=== PATIENT | female | born 1990 | race Caucasian/White ===

== ENCOUNTER 2023-08-27 08:37 | Emergency (ER) | payer BC, SELFPAY ==
[2023-08-27 08:44] VITALS: BP 117/65
[2023-08-27 09:11] LABS: Urine Albumin Negative (Neg - Trace); Urine Bilirubin Negative (Negative); Urine Character Clear (Clear); Urine Color Yellow; Urine Glucose Negative (Negative); Urine Ketone Negative (Negative); Urine Leukocyte Negative (Negative); Urine Nitrite Negative (Negative); Urine Occult Blood Negative (Negative); Urine Urobilinogen Negative (Neg - 1+)
[2023-08-27 09:16] LABS: HCG, Urine Qualitative Screen Negative
[2023-08-27 09:25] LABS: % Basophils 0.6 % (0-2); % Immature Granulocytes 0.2 % (0-0.5); % Lymphocytes 42.2 % (20.5-51.1); % Monocytes 5.2 % (1.7-9.3); % Neutrophils 47.8 % (42.2-75.2); Absolute Eosinophils 0.2 10^3/uL (0-0.7); Absolute Lymphocytes 2.1 10^3/uL (1.2-3.4); Absolute Monocytes 0.3 10^3/uL (0.1-0.6); Absolute Neutrophils 2.4 10^3/uL (1.4-6.5); Hematocrit 40.8 % (37.0-47.0); Hemoglobin 13.8 g/dL (12.0-16.0); Mean Corp Hgb Conc. 33.8 g/dL (33.0-37.0); Mean Corpuscular Hgb 30.7 pg (27.0-31.0); Mean Corpuscular Volume 90.7 fL (81.0-99.0); Mean Platelet Volume 10.3 fL (7.4-10.4); Nucleated Red Blood Cells % 0 %; Platelet Count 221 10^3/uL (130-400); Red Cell Dist. Width 12.6 % (11.5-14.5)
[2023-08-27 09:33] LABS: ALT (SGPT) 23 U/L (0-35); AST (SGOT) 28 U/L (14-36); Albumin 4.2 g/dl (3.5-5.0); Alkaline Phosphatase 46 U/L (38-126); Blood Urea Nitrogen 17 mg/dl (7-17); Calcium 9.2 mg/dl (8.4-10.2); Carbon Dioxide 26 mmol/L (22-30); Chloride 106 mmol/L (98-107); Glucose 90 mg/dl (70-99); Potassium 4.5 mmol/L (3.5-5.1); Sodium 136 mmol/L (135-145); Total Bilirubin 0.5 mg/dl (0.2-1.3); Total Protein 6.9 g/dl (6.3-8.2); eGFR > 60.00
--- NOTE | 2023-08-27 09:52 | ED.GENMED ---
History of Present Illness
General
Chief Complaint: Abdominal Pain
Source: patient
Exam Limitations: none
Time Seen by Provider: 08/27/23 09:07
Nursing documentation reviewed up to this point in time: agreed with
History of Present Illness
History of Present Illness:
33-year-old female presenting to the emergency department today with concerns of 1 week of right-sided pelvic. Started as a sudden burst of pain 1 week ago and has been intermittently severe but persistent since. Does radiate to her right low
back. Denies any nausea vomiting fevers. Did have some vaginal bleeding initially but not ongoing. Does have a history of ovarian cyst.
Past History
Past History
ED Past Medical History: Other (Pyelonephritis at age 17) and Other (Lyme disease)
ED Past Surgical History: Other (Rhinoplasty)
Patient has exhibited threatening behavior?: No
PSI?: No
Social History
Tobacco: Non-smoker
Alcohol: None
Drug: None
Personal: Other (Fianc�)
Living: with family
Employment: Employed (Advertising)
Family History
Family History: Other (noncontributory)
Review of Systems
Review of Systems
Allergies reviewed?: Yes
All Other Systems: ROS reviewed and negative except as documented in HPI and ROS
Phy Exam
Physical Exam
Physical Exam:
GENERAL: Alert , in no apparent distress
EYE: pupils equal and reactive
NECK: Supple, no significant adenopathy.
ENT: o/p clr, mmm.
CARDIAC: Regular rate and rhythm .
LUNGS: Clear breath sounds bilaterally, no acute respiratory distress, no wheezes/rales/rhonchi
ABDOMEN: Soft, without focal tenderness, no r/g, no cvat
Pelvic: Right adnexal pain no masses no bleeding, no cervical motion tenderness no left adnexal discomfort
NEUROLOGICAL: Alert and oriented, no focal neuro deficits
SKIN: Warm and dry, skin intact.
MUSCULOSKELETAL: No edema, well perfused.
PSYCH: Normal and appropriate interaction.
Course
Orders/Labs/Results
Orders:
Orders
08/27/23 08:55
Test Result ONCE
08/27/23 09:00
HCG, Urine Qualitative Screen Urgent
Date Specimen was Collected: 08/27/23
Time Specimen was Collected: 08:55
Urinalysis Reflex To Culture Urgent
Date Specimen was Collected: 08/27/23
Time Specimen was Collected: 08:55
08/27/23 09:09
CMP [Comprehensive Metabolic Panel] Urgent
Complete Blood Count/With Diff Urgent
08/27/23 09:31
US Pelvis W Transvag Combined Urgent
Reason For Exam: right adnexal pain
08/27/23 09:09
08/27/23 09:09
Vital Signs
Initial and Last Documented VS:
Initial Vital Signs
Temp Pulse Resp BP Pulse Ox
98.9 F 65 16 117/65 99
08/27/23 08:44 08/27/23 08:44 08/27/23 08:44 08/27/23 08:44 08/27/23 08:44
Last Documented Vital Signs
Temp Pulse Resp BP Pulse Ox
98.9 F 66 16 123/67 99
08/27/23 08:44 08/27/23 10:37 08/27/23 10:37 08/27/23 10:37 08/27/23 08:44
MDM/Problems Addressed
MDM/Problems Addressed:
33-year-old female presenting to the emergency department today with concerns of right-sided pelvic discomfort over the past week started as a sudden burst of pain had some bleeding for a few days has had intermittent severe pain but ongoing
persisting pain as well. Patient's right adnexa is tender to palpation ultrasound ordered for further assessment. Ultrasound with no emergent findings no signs of torsion vital signs normal here. Labs unremarkable urinalysis normal no signs of
emergent pathology reassessed with no significant pain to the lower abdomen does not seem to be consistent with abdominal pathology case was discussed with gynecology and recommending close outpatient follow-up. Patient will follow-up but otherwise
stable here. Given return precautions.
*Critical Care Note
Total Time (30-74mins, 75-104mins- exclusive of procedures): Not Applicable
ED Attending Note
-
Portions of this chart may have been created with voice recognition software.� Occasional wrong word or��sound alike� substitutions may have occurred due to the inherent limitations of voice recognition software.
Discharge Plan
Departure
Patient Disposition: Home (Routine Discharge)
Date of Disposition: 08/27/23
Time of Disposition: 11:32
Patient with high blood pressure during this ER visit?: No
Condition: Good
Covid-19: Not Applicable
Discharge Problem:
Pelvic pain
Instructions: Pelvic Pain (DC)
Prescriptions:
No Action
Vitamin Tablet
1 tab PO DAILY
Probiotic
1 tab PO DAILY
ibuprofen 600 MG tablet
600 mg PO Q4HPRN PRN (Reason: moderate pain/cramps) 0RF
Referrals:
Shaylee Garcia MD [Active] - Follow up in 5-7 days
Inderjit Jonas MD [Family Provider] -
Activity Restrictions/Additional Instructions:
You came to the emergency department today with concerns of pelvic discomfort. Here you had a reassuring assessment with normal ultrasound labs and urinalysis. Please follow closely with gynecology. Return to the emergency department any
worsening, new or concerning symptoms.
Interventions
Interventions:
*Risk Screen - Suicide Last Done: 08/27/23 09:21
*General Assessment Last Done: 08/27/23 09:21
*Neglect/Abuse Screening Last Done: 08/27/23 09:21
ED- Fall Risk Assessment Last Done: 08/27/23 09:24
*ED COVID-19 Vaccine History Last Done: 08/27/23 08:54
OC-Codbmt-Anibsetnxt Assessment Last Done: 08/27/23 09:21
Discharge Date and Time
Print Language: BULGARIAN
[2023-08-27 10:37] VITALS: BP 123/67
[2023-08-27 11:46] VITALS: BP 105/50
== END 2023-08-27 11:48 | disposition home or self-care (01) ==
LOC: EMR 08:37
PROVIDERS: EMERGENCY PHYSICIAN Emergency Medicine; FAMILY PHYSICIAN Family Medicine
DX: R10.2 Pelvic and perineal pain (principal); M54.50 Low back pain, unspecified; N83.209 Unspecified ovarian cyst, unspecified side; Z88.5 Allergy status to narcotic agent
CPT/HCPCS: 99284; 76830; 76856; 80053; 81003; 81025; 85025

== ENCOUNTER 2023-12-02 18:59 | Emergency (ER) | payer BC, SELFPAY ==
[2023-12-02] VITALS (14 sets, daily range): BP systolic 120–171; BP diastolic 68–96
[2023-12-02] MEDS: MORPHINE SULFATE 6 MG IV (19:27)
[2023-12-02] MEDS: ZOFRAN 4 MG IV (19:28)
[2023-12-02] MEDS: ATIVAN 1 MG IV (19:29)
--- NOTE | 2023-12-02 19:41 | ED.MUSCINJ ---
HPI-Injury
General
Chief Complaint: Musculo-Skeletal Complaint
Time Seen by Provider: 12/02/23 19:07
History of Present Illness-Injury
Initial Injury comments:
33-year-old female without significant past medical history presenting to the emergency department with concern of bilateral shoulder dislocation. Patient reports she was at the gym prior to arrival, doing an overhead press and felt both of her
arms dislocate. Reports history of dislocation to her right shoulder in the past, however was able to pop it back into place. Denies any additional acute injuries. Denies any additional acute medical complaints. Patient received fentanyl and
route by medics.
Past History
Past History
ED Past Medical History: Other (Pyelonephritis at age 17) and Other (Lyme disease)
ED Past Surgical History: Other (Rhinoplasty)
Patient has exhibited threatening behavior?: No
PSI?: No
Social History
Tobacco: Non-smoker
Alcohol: None
Drug: None
Personal: Other (Fianc�)
Living: with family
Employment: Employed (Advertising)
Family History
Family History: Other (noncontributory)
Phy Exam
Physical Exam
Physical Exam:
General: Well-appearing, no clinical signs of dehydration
HEENT: protecting airway
Neck: appears supple
CV: Normal heart rate
Resp: No accessory muscle use, no increased work of breathing
Abd: Soft and non-distended, no tenderness to palpation, normal bowel sounds
Extremities: Obvious deformity to bilateral shoulders with arms held in abduction, pulses and sensation intact. Limited range of motion secondary to pain
Neuro: alert, no focal neurologic deficit
: deferred
Rectal: deferred
Psych: Normal affect
Skin: Intact
Injury Course
Orders/Labs/Results
Orders:
Orders
12/02/23 19:04
Morphine Sulfate 8 mg .ROUTE .STK-MED ONE
12/02/23 19:10
CR Shoulder - Left 1 View Urgent
Reason For Exam: injury
CR Shoulder - Right 1 View Urgent
Reason For Exam: injury
12/02/23 19:16
Lorazepam [Ativan] 2 mg .ROUTE .STK-MED ONE
12/02/23 19:17
Propofol [Diprivan] 20 ml .ROUTE .STK-MED
12/02/23 19:18
Ondansetron Injectable [Zofran] 4 mg .ROUTE .STK-MED ONE
12/02/23 19:25
Morphine Sulfate 2 mg .ROUTE .STK-MED ONE
12/02/23 19:26
Morphine Sulfate 6 mg IV NOW STA
12/02/23 19:28
Ondansetron Injectable [Zofran] 4 mg IV NOW STA
12/02/23 19:29
Lorazepam [Ativan] 1 mg IV NOW STA
12/02/23 19:32
Shoulder, Left 2 View CR [CR Shoulder - Left Min 2 View*] Urgent
Comment:
Reason For Exam: post reduction
Shoulder, Right 2 Views [CR Shoulder - Right Min 2 View] Urgent
Comment:
Reason For Exam: post reduction
Procedures
Moderate Sedation
ASA Risk Score: Class I
Chart and allergies reviewed: Yes
Consent for anesthesia obtained: Yes
Time out completed (validating right patient & procedure): Yes
Moderate Sedation Start Time(when first medication is given): 19:34
History of difficult intubation: No
Airway free of obstruction: Yes
Patient has a gag reflex: Yes
Patient is able to open mouth: Yes
Patient has no dentures: Yes
Patient has no loose teeth: Yes
Medication administered by Provider during Moderate Sedation: IV Propofol (mg)
Total dose administered: 100
Time drug administered: 19:34
Moderate Sedation Procedure End Time: 19:45
Joint/Fracture Reduction
Bilateral Anterior Shoulder:
Indication for procedure:: shoulder dislocation, bilateral
Procedure completed by: Kristina Snyder and Jae Timmons
Consent form signed: Yes
Joint reduced: with anesthesia sedation
Injury was: closed
Post reduction exam: stable
Capillary Refill: normal
Normal distal neurovascular exam?: Yes
MDM/Problems Addressed
MDM/Problems Addressed:
33-year-old female without significant past medical history presenting for concern of bilateral shoulder dislocation after lifting weights. Vital signs on arrival are normal.
On exam, patient is well-appearing, no acute distress, however is uncomfortable secondary to pain with obvious deformities to bilateral upper extremities. No neurovascular compromise at this time. X-rays obtained and patient's arrival, confirm
dislocation, anterior. Morphine administered for pain. Procedural sedation and shoulder reduction consent obtained. Procedure was completed without issue. Please see procedure note. Repeat x-rays confirm relocation, normal neurovascular exam
status post reduction. Patient placed in bilateral shoulder immobilizers. Will continue to monitor until clinically stable off of sedation with disposition home with outpatient orthopedic follow-up, spouse to drive her home
*Critical Care Note
Total Time (30-74mins, 75-104mins- exclusive of procedures): Not Applicable
ED Attending Note
-
Portions of this chart may have been created with voice recognition software.� Occasional wrong word or��sound alike� substitutions may have occurred due to the inherent limitations of voice recognition software.
Discharge Plan
Departure
Prescriptions:
No Action
Vitamin Tablet
1 tab PO DAILY
Probiotic
1 tab PO DAILY
ibuprofen 600 MG tablet
600 mg PO Q4HPRN PRN (Reason: moderate pain/cramps) 0RF
Interventions
Interventions:
*Risk Screen - Suicide Last Done: 12/02/23 19:05
*General Assessment Last Done: 12/02/23 19:05
*Neglect/Abuse Screening Last Done: 12/02/23 19:05
Discharge Date and Time
Print Language: UKRAINIAN
[2023-12-02] MEDS: TORADOL 30 MG IV (20:03)
== END 2023-12-02 21:03 | disposition home or self-care (01) ==
LOC: EMR 18:59
PROVIDERS: EMERGENCY PHYSICIAN Student in an Organized Health Care Education/Training Program
DX: S43.005A Unspecified dislocation of left shoulder joint, initial encounter (principal); S43.004A Unspecified dislocation of right shoulder joint, initial encounter; X50.0XXA Overexertion from strenuous movement or load, initial encounter
CPT/HCPCS: 99285; 23650; 96374; 96375 ×2; 99152; 73020; 73030

== ENCOUNTER → 2024-06-04 05:17 | Emergency (ER) | payer OTHER, SELFPAY ==
[2024-06-04 05:19] VITALS: BP 104/74
[2024-06-04 05:37] VITALS: BP 108/72
[2024-06-04] MEDS: NSS 1000 IV (05:54)
[2024-06-04] MEDS: ZOFRAN 4 MG IV (05:55)
[2024-06-04 06:07] LABS: % Basophils 0.4 % (0-2); % Eosinophils 2.7 % (0-6); % Immature Granulocytes 0.3 % (0-0.5); % Lymphocytes 33.5 % (20.5-51.1); % Neutrophils 56.1 % (42.2-75.2); Absolute Eosinophils 0.2 10^3/uL (0-0.7); Absolute Lymphocytes 2.4 10^3/uL (1.2-3.4); Absolute Monocytes 0.5 10^3/uL (0.1-0.6); Absolute Neutrophils 3.9 10^3/uL (1.4-6.5); Hematocrit 40.8 % (37.0-47.0); Hemoglobin 14.1 g/dL (12.0-16.0); Mean Corp Hgb Conc. 34.6 g/dL (33.0-37.0); Mean Corpuscular Hgb 31.1 pg (27.0-31.0); Mean Corpuscular Volume 90.1 fL (81.0-99.0); Mean Platelet Volume 10.1 fL (7.4-10.4); Nucleated Red Blood Cells % 0 %; Platelet Count 226 10^3/uL (130-400); Red Blood Cell Count 4.53 10^6/uL (4.20-5.40); Red Cell Dist. Width 12.1 % (11.5-14.5)
--- NOTE | 2024-06-04 06:08 | ED.GENMED ---
History of Present Illness
General
Chief Complaint: Abdominal Symptoms
Time Seen by Provider: 06/04/24 05:57
History of Present Illness
History of Present Illness:
Patient is a 33-year-old female who presents to the emergency department with nausea vomiting and diarrhea. Symptoms started on Wednesday. She had some diarrhea at that time. Since then she has had nausea and vomiting. She endorses intermittent
abdominal pain across her lower abdomen. Denies any fevers or chills. Denies any bloody stools. Denies any urinary symptoms. Last menstrual period was 2 weeks ago. She endorses a chronic history of abdominal pain that comes and goes but is
never been diagnosed. She has not yet seen a GI doctor for this as every time she has made an appointment, symptoms have self resolved.
Past History
Past History
ED Past Medical History: Other (Pyelonephritis at age 17) and Other (Lyme disease)
ED Past Surgical History: Other (Rhinoplasty)
Patient has exhibited threatening behavior?: No
PSI?: No
Social History
Tobacco: Non-smoker
Alcohol: None
Drug: None
Personal: Other (Fianc�)
Living: with family
Employment: Employed (Advertising)
Family History
Family History: Other (noncontributory)
Phy Exam
Physical Exam
Physical Exam:
GENERAL APPEARANCE: NAD, well developed/ well nourished
EYES lids/conjunctiva normal
EARS/NOSE/THROAT Mucous membranes moist, uvula midline without oral pharyngeal erythema, exudate or swelling
HEAD/NECK normocephalic atraumatic, neck is supple.
RESPIRATORY respiratory effort normal, speaks in full sentences, no accessory muscle use. Lungs clear to auscultation without rhonchi, wheezes, rales
CARDIAC Regular rate and rhythm, no edema.
ABDOMINAL Soft, no distention. Mild tenderness across the lower abdomen. No guarding or rebound.
MUSCLES/EXTREMITIES No abnormal range of motion, no swelling.
SKIN Warm, pink and dry. No rashes
NEUROLOGICAL Speech is clear and appropriate. Normal level of consciousness. 5/5 strength in all extremities.
PSYCH Normal mood and affect. Judgement/competence is appropriate
Course
Orders/Labs/Results
Orders:
Orders
06/04/24 05:45
IV Insert/Care/Rem.- Treatment PRN
Urinalysis Reflex To Culture Urgent
Date Specimen was Collected: 06/04/24
Time Specimen was Collected: 05:46
Urine Microscopic Reflex Cult Urgent
06/04/24 05:47
Test Result ONCE
06/04/24 05:48
Complete Blood Count/With Diff Urgent
Comprehensive Metabolic Panel Urgent
HCG, Serum Qualitative Screen Urgent
Lipase Urgent
06/04/24 05:51
Ondansetron Injectable [Zofran] 4 mg .ROUTE .STK-MED ONE
Ondansetron Orally Disint [Zofran Odt (Orally Disintegrating)] 4 mg .ROUTE .STK-MED ONE
06/04/24 05:53
0.9% Sodium Chloride 1000 ml [Nss] 1,000 ml IV BOLUS
06/04/24 05:54
Ondansetron Injectable [Zofran] 4 mg IV NOW STA
06/04/24 06:10
Mag Hydrox/Al Hydrox/Simeth [Maalox] 30 ml Phenobarb/Hyoscy/Atropine/Scop [] 10 ml Viscous Lidocaine 2% [Xylocaine Viscous Cup] 10 ml PO NOW
Pantoprazole [Protonix IV] 40 mg IV NOW STA
06/04/24 06:23
Mag Hydrox/Al Hydrox/Simeth [Maalox] 30 ml .ROUTE .STK-MED ONE
Phenobarb/Hyoscy/Atropine/Scop [] 10 ml .ROUTE .STK-MED ONE
Viscous Lidocaine 2% [Xylocaine Viscous Cup] 15 ml .ROUTE .STK-MED ONE
Abnormal Lab Results
04/06/25 04/06/25
05:45 05:48
MCH 31.1 H pg
(27.0-31.0)
Lipase 354 H U/L
(23-300)
Ur Occult Blood Reflex 1+ A
(Negative)
Urine Bacteria (Reflex) Few A
(Negative)
06/04/24 05:48
06/04/24 05:48
Vital Signs
Initial and Last Documented VS:
Initial Vital Signs
Temp Pulse Resp BP Pulse Ox
97.8 F 88 20 104/74 100
06/04/24 05:19 06/04/24 05:19 06/04/24 05:19 06/04/24 05:19 06/04/24 05:19
Last Documented Vital Signs
Temp Pulse Resp BP Pulse Ox
97.8 F 69 17 108/72 100
06/04/24 05:19 06/04/24 07:15 06/04/24 07:15 06/04/24 05:37 06/04/24 07:15
*Critical Care Note
Total Time (30-74mins, 75-104mins- exclusive of procedures): Not Applicable
ED Attending Note
ED Attending Note
ED Attending Note:
Suspect underlying gastrointestinal disease possibly IBS versus some type of inflammatory bowel disease. No fevers or per bloody stools at this time. Doubt acute appendicitis or acute emergency given 1 week of symptoms without any significant
tenderness at this time. Will start on a PPI, rehydrate, treat symptomatically and reassess.
No leukocytosis. No evidence of significant dehydration. No epigastric pain or tenderness typical of pancreatitis. No active vomiting in ER. Lipase level elevated but not at level suggestive of pancreatitis. Possibly resolving pancreatitis? Will
recommend clear liquid diet, start PPI and refer to GI as outpatient
-
Portions of this chart may have been created with voice recognition software.� Occasional wrong word or��sound alike� substitutions may have occurred due to the inherent limitations of voice recognition software.
Discharge Plan
Departure
Patient Disposition: Home (Routine Discharge)
Date of Disposition: 06/04/24
Time of Disposition: 08:31
Patient with high blood pressure during this ER visit?: No
Discharge Problem:
Vomiting
Instructions: Clear Liquid Diet, Nausea and Vomiting, Adult (DC)
Prescriptions:
New
ondansetron 4 mg tablet,disintegrating
4 mg PO TIDPRN PRN (Reason: nausea/vomiting) Qty: 14 0RF
pantoprazole 40 mg tablet,delayed release (DR/EC)
40 mg PO DAILY Qty: 14 0RF
No Action
Vitamin Tablet
1 tab PO DAILY
Probiotic
1 tab PO DAILY
ibuprofen 600 MG tablet
600 mg PO Q4HPRN PRN (Reason: moderate pain/cramps) 0RF
ibuprofen 800 mg tablet
800 mg PO Q8H PRN (Reason: Pain) Qty: 20 0RF
oxycodone 5 mg capsule
5 mg PO BID PRN (Reason: Pain) 5 Days Qty: 10 0RF
Referrals:
NONE,* [Family Provider] -
Savi Alejo, [Active] -
Activity Restrictions/Additional Instructions:
Please call and schedule close follow-up appointment with the bridge contractor. Return to the emergency department with fevers chills, worsening symptoms especially if the pain becomes more severe
Interventions
Interventions:
*Risk Screen - Suicide Last Done: 06/04/24 05:19
*Neglect/Abuse Screening Last Done: 06/04/24 05:19
Discharge Date and Time
Print Language: BURKINAN
[2024-06-04 06:20] LABS: ALT (SGPT) 27 U/L (0-35); AST (SGOT) 26 U/L (14-36); Alkaline Phosphatase 51 U/L (38-126); Blood Urea Nitrogen 13 mg/dl (7-17); Calcium 9.4 mg/dl (8.4-10.2); Carbon Dioxide 25 mmol/L (22-30); Chloride 106 mmol/L (98-107); Glucose 91 mg/dl (70-99); Lipase 354 U/L (23-300); Potassium 4.7 mmol/L (3.5-5.1); Sodium 139 mmol/L (135-145); Total Bilirubin 0.5 mg/dl (0.2-1.3); Total Protein 6.6 g/dl (6.3-8.2); eGFR > 60.00
[2024-06-04 06:22] LABS: HCG, Serum Qualitative Screen Negative
[2024-06-04] MEDS: MAALOX 50 PO (06:25)
[2024-06-04] MEDS: PROTONIX IV 40 MG IV (06:25)
[2024-06-04 07:52] LABS: Urine Albumin Negative (Neg - Trace); Urine Bilirubin Negative (Negative); Urine Character Clear (Clear); Urine Color Yellow; Urine Glucose Negative (Negative); Urine Ketone Negative (Negative); Urine Leukocyte Negative (Negative); Urine Nitrite Negative (Negative); Urine Occult Blood 1+ (Negative); Urine Urobilinogen Negative (Neg - 1+)
[2024-06-04 08:28] LABS: Urine Bacteria Few (Negative); Urine White Cell 0-2 /HPF (0-5)
[2024-06-04 08:29] LABS: Urine Red Blood Cell None Seen /HPF (0-2)
== END | disposition home or self-care (01) ==
LOC: EMR 05:17
PROVIDERS: Student in an Organized Health Care Education/Training Program; EMERGENCY PHYSICIAN Emergency Medicine
DX: R11.2 Nausea with vomiting, unspecified (principal); R19.7 Diarrhea, unspecified; R10.30 Lower abdominal pain, unspecified; Z88.5 Allergy status to narcotic agent
CPT/HCPCS: 99284; 96374; 96375; 96361; 80053; 81003; 81015; 83690; 84703; 85025

== ENCOUNTER 2025-02-21 14:24 | Emergency (ER) | payer OTHER, SELFPAY ==
[2025-02-21 14:30] VITALS: BP 124/88
[2025-02-21 16:23] VITALS: BMI 29.6
[2025-02-21] MEDS: MOTRIN 600 MG PO (16:34)
--- NOTE | 2025-02-21 16:45 | ED.MUSCINJ ---
HPI-Injury
General
Chief Complaint: Musculo-Skeletal Complaint
Source: patient
Exam Limitations: none
Time Seen by Provider: 02/21/25 16:29
Nursing documentation reviewed up to this point in time: agreed with
History of Present Illness-Injury
Initial Injury comments:
Patient to emergency department for evaluation of right foot. Patient states that she dropped a weight onto her barefoot. She complains of pain to right dorsal midfoot. She has a superficial abrasion bruising and swelling to site. Incident
occurred just prior to arrival.
Past History
Past History
ED Past Medical History: Other (Pyelonephritis at age 17) and Other (Lyme disease)
ED Past Surgical History: Other (Rhinoplasty)
Patient has exhibited threatening behavior?: No
PSI?: No
Social History
Tobacco: Non-smoker
Alcohol: None
Drug: None
Personal: Other (Fianc�)
Living: with family
Employment: Employed (Advertising)
Family History
Family History: Other (noncontributory)
Review of Systems
Review of Systems
Allergies reviewed?: Yes
All Other Systems: ROS reviewed and negative except as documented in HPI and ROS
Constitutional: Reports no symptoms
Musculoskeletal: Reports joint pain (Pain to right dorsal midfoot)
Skin: Reports other (Superficial abrasion to right dorsal midfoot)
Neurological: Reports no symptoms
Psychiatric: Reports no symptoms
Musculoskeletal Injury Exam
Musculoskeletal Injury Exam
Right dorsal midfoot:
Pain with Movement?: Moderate
Tender to palpation?: Moderate
Soft tissue swelling?: Moderate
External deformity and angulation?: None
Joint effusion?: None
Contusion?: Moderate
Hematoma-local bleeding into tissue?: Moderate
Strain- Sprain- Tear (Connective tissue injury)?: None
Crepitus with movement?: No
Joint instability?: No
Malalignment/deformity?: No
Range of motion: Limited
Distal skin color and temperature: normal-warm & good color
Capillary Refill: normal
Normal distal neurovascular exam?: Yes
Peripheral Pulses: posterior tibial (right): 3+ and dorsalis pedis (right): 3+
Phy Exam
General Physical Exam
General Presentation: mild distress
General age: appears stated age
General Skin: warm and dry
General Habitus: normal
General Mental: alert
Musculoskeletal Exam
Musculoskeletal Exam: neuro vasc intact and other (No ankle pain)
Skin Exam
Skin Exam: warm/dry and other (Superficial abrasion right dorsal midfoot)
Psychiatric Exam
Psychiatric Exam: normal mood/affect
Injury Course
Orders/Labs/Results
Orders:
Orders
02/21/25 14:36
Foot, Right 3 View [CR Foot - Right Min 3 Views] Urgent
Comment:
Reason For Exam: pain injury
02/21/25 16:31
Ibuprofen [Motrin] 600 mg PO NOW STA
02/21/25 16:43
Ortho Boot Right- Treatment ONCE
Short or tall?: Short
*Radiology
Radiology exam reviewed: radiology read reviewed
*Pulse Oximetry
SaO2: 100
Oxygen Mode of Delivery: Room air
Patient hypoxic: no
*Critical Care Note
Total Time (30-74mins, 75-104mins- exclusive of procedures): Not Applicable
Update Note
Update Note:
Patient to the emergency department for evaluation of pain swelling and bruising to right dorsal midfoot. She accidentally dropped a weight on her foot. X-ray reviewed. Report of nondisplaced subacute fracture to the base of the second
metatarsal. Patient denies any prior injury. Will place in an Ortho boot and she will follow-up with orthopedics. She will continue to elevate and ice. Tylenol or Motrin as needed.
ED Attending Note
-
Portions of this chart may have been created with voice recognition software.� Occasional wrong word or��sound alike� substitutions may have occurred due to the inherent limitations of voice recognition software.
Discharge Plan
Departure
Patient Disposition: Home (Routine Discharge)
Date of Disposition: 02/21/25
Time of Disposition: 16:44
Patient with high blood pressure during this ER visit?: No
Condition: Good
Covid-19: Not Applicable
Discharge Problem:
Metatarsal fracture
Instructions: Ibuprofen, Using Cold for Pain, Foot Fracture ED
Prescriptions:
No Action
Vitamin Tablet
1 tab PO DAILY
Probiotic
1 tab PO DAILY
ibuprofen 600 MG tablet
600 mg PO Q4HPRN PRN (Reason: moderate pain/cramps) 0RF
ibuprofen 800 mg tablet
800 mg PO Q8H PRN (Reason: Pain) Qty: 20 0RF
oxycodone 5 mg capsule
5 mg PO BID PRN (Reason: Pain) 5 Days Qty: 10 0RF
ondansetron 4 mg tablet,disintegrating
4 mg PO TIDPRN PRN (Reason: nausea/vomiting) Qty: 14 0RF
pantoprazole 40 mg tablet,delayed release (DR/EC)
40 mg PO DAILY Qty: 14 0RF
Referrals:
NONE,* [Family Provider, Internal Medicine]
Jhonathan Montes MD [Active, Orthopedics] - Call in 1-3 days for appt
Activity Restrictions/Additional Instructions:
Follow-up with the orthopedic provider. No driving.
Interventions
Interventions:
*General Assessment Last Done: 02/21/25 16:23
*Neglect/Abuse Screening Last Done: 02/21/25 14:33
*ED COVID-19 Vaccine History Last Done: 02/21/25 16:23
*ED Influenza Vaccine History Last Done: 02/21/25 16:23
*Risk Screen - Suicide (C-SSRS) Last Done: 02/21/25 14:33
ED-Musculoskeletal Assessment Last Done: 02/21/25 16:23
Discharge Date and Time
Print Language: ALBANIAN
[2025-02-21 17:40] VITALS: BP 126/84
--- NOTE | 2025-02-21 18:04 | EDRN ---
Reviewed discharge instructions with patient. Verbalized understanding. Taken to lobby in wheelchair.
== END 2025-02-21 17:40 | disposition home or self-care (01) ==
LOC: EMR 14:24
PROVIDERS: EMERGENCY PHYSICIAN Emergency Medicine
DX: S92.309A Fracture of unspecified metatarsal bone(s), unspecified foot, initial encounter for closed fracture (principal); W20.8XXA Other cause of strike by thrown, projected or falling object, initial encounter
CPT/HCPCS: 99283; 29515; 73630